=== PATIENT | male | born 1985 | race Two or more races ===

== ENCOUNTER 2023-10-10 13:59 | Emergency (ER) | payer OTHER ==
[~2023-10-10] VITALS: Ht 170.2 cm; Wt 77.1 kg
[2023-10-10] MEDS ORDERED: PANTOPRAZOLE 40 MG VIAL ONE (14:45)
[2023-10-10] MEDS ORDERED: ASPIRIN EC 81 MG TABLET.DR PO ONE (14:45)
[2023-10-10] MEDS: ASPIRIN EC 81 MG TABLET.DR PO ONE (14:48)
[2023-10-10] MEDS: PANTOPRAZOLE 40 MG VIAL IV ONE ×2 (14:50→14:56)
[2023-10-10 15:05] LABS: BASOPHILS % (AUTO) 0.1 % (0.0-2.0); EOSINOPHILS % (AUTO) 0.1 % (0.0-6.0); HEMATOCRIT 30 % (39-51); LYMPHOCYTES # (AUTO) 0.8 K/uL (0.8-4.8); LYMPHOCYTES % (AUTO) 10.9 % (20.0-44.0); MEAN CORPUSCULAR HEMOGLOBIN 26 PG (26.0-33.0); MEAN CORPUSCULAR HGB CONC 33 g/dl (31.0-36.0); MEAN CORPUSCULAR VOLUME 79 fL (80-96); MONOCYTES # (AUTO) 0.4 K/uL (0.1-1.30); MONOCYTES % (AUTO) 5.8 % (2.0-12.0); NEUTROPHILS % (AUTO) 83.1 % (43.0-81.0); PLATELET COUNT (AUTO) 223 K/uL (150-450); RED BLOOD CELL COUNT(AUTO) 3.85 MIL/uL (4.5-6.0); RED CELL DISTRIBUTION WIDTH 14.4 % (11.5-15.0); WHITE BLOOD COUNT (AUTO) 7.3 K/uL (4.3-11.0)
[2023-10-10 15:24] LABS: ALANINE AMINOTRANSFERASE 17 U/L (12-78); ALBUMIN 3.1 g/dL (3.4-5.0); ALKALINE PHOSPHATASE 61 U/L (46-116); ASPARTATE AMINOTRANSFERASE 13 U/L (15-37); BILIRUBIN,DIRECT 0.1 mg/dL (0.0-0.2); BILIRUBIN,TOTAL 0.4 mg/dL (0.2-1.0); CALCIUM, SERUM 8.6 mg/dL (8.5-10.1); CARBON DIOXIDE 26 mmol/L (21-32); CHLORIDE 98 mmol/L (98-107); CREATININE 0.7 mg/dL (0.6-1.3); GLUCOSE 99 mg/dL (74-106); LIPASE 15 U/L (16-77); POTASSIUM 3.5 mmol/L (3.5-5.1); TOTAL PROTEIN, SERUM 7.4 g/dL (6.4-8.2); UREA NITROGEN, BLOOD 9 mg/dL (7-18)
[2023-10-10 15:27] LABS: SODIUM SERUM 135 mmol/L (136-145)
[2023-10-10 15:43] LABS: INR 0.95 (0.91-1.10); PARTIAL THROMBOPLASTIN TIME 32.1 SEC (24.3-34.3); PROTHROMBIN TIME 10.1 SECS (9.2-11.1)
[2023-10-10] MEDS ORDERED: PHENYTOIN EXTENDED RELEASE 100 MG CAPSULE PO ONE (16:18)
[2023-10-10] MEDS ORDERED: PHEN100C4 PO (16:20)
[2023-10-10] MEDS ORDERED: IBUP-1953 PO (16:20)
[2023-10-10] MEDS ORDERED: AZIT250T PO (16:20)
[2023-10-10] MEDS: PHENYTOIN EXTENDED RELEASE 100 MG CAPSULE PO ONE (16:22)
[2023-10-10 16:29] VITALS: BP 140/85; TEMP 97.9; O2SAT 99
== END 2023-10-10 16:29 ==
LOC: ER 13:59
DX: J40 Bronchitis, not specified as acute or chronic (principal); G40.909 Epilepsy, unspecified, not intractable, without status epilepticus; F41.9 Anxiety disorder, unspecified
CPT/HCPCS: 99285; 74176; 96374; 71045; 93005; 85025; 80048; 80185; 83690; 80076; 36415; 84484; 85730; C9113